=== PATIENT | male | born 1980 | race Caucasian/White ===

== ENCOUNTER 2019-08-14 23:15 | Inpatient (IN) ==
--- NOTE | 2019-08-14 23:56 | EKG Report ---
Test Performed on : 08/14/2019 11:27:24 PM Test Reason : OVERDOSE Blood Pressure : / mmHG Vent. Rate : 101 BPM Atrial Rate : 101 BPM P-R Int : 144 ms QRS Dur : 116 ms QT Int : 380 ms P-R-T Axes : 047 -27 047 degrees QTc Int : 492 ms Sinus tachycardia. Possible Left atrial enlargement Incomplete right bundle branch block Borderline ECG When compared with ECG of 26-NOV-2018 20:16, No significant change was found Unconfirmed Result
[2019-08-14 23:59] LABS: BASO# 0.02 X1000 (0.0-0.2); BASO% 0.2 % (0.0-0.8); EOS# 0.03 X1000 (0.0-0.7); EOS% 0.4 % (0.0-10.0); HEMATOCRIT 45.1 % (42.0-52.0); HEMOGLOBIN 15.1 g/dL (14.0-18.0); IMM GRAN# 0.06 X1000 (0.0-0.04); IMM GRAN% 0.7 % (0.0-0.5); LYMPH# 1.75 X1000 (1.2-3.4); LYMPH% 20.8 % (20.5-51.1); MCH 29.1 PG (27-31); MCHC 33.5 g/dL (33-37); MCV 86.9 FL (81-99); MONO# 0.73 X1000 (0.11-0.59); MONO% 8.7 % (1.7-9.3); MPV 12.7 FL (7.4-10.4); NEUT# 5.84 X1000 (1.4-6.5); NEUT% 69.2 % (42.2-75.2); PLT 167 X1000 (130-400); RBC 5.19 XMIL (4.7-6.1); WBC 8.43 X1000 (4.8-10.8)
[2019-08-15] LABS: ALLEN TEST YES; BE 3.3 mmoll (-3.0-3.0); BLOOD TYPE ARTERIAL; HCO3-(ACT) 27.3 mmoll (20.0-26.0); METHB 1.1 % (0.0-1.5); MODALITY ROOM AIR; O2(CT) 19.7 mL/dL (15.0-23.0); O2HB 91.1 % (95.0-99.0); PCO2(98.6) 41 mmHg (35-45); PO2(98.6) 67 mmHg (60-100); SAMPLE BLOOD; SAO2 96.4 % (95.0-100.0); THB 15.4 g/dL (11.5-17.4); pH(98.6) 7.44 (7.35-7.45)
[2019-08-15 01:01] LABS: ACETAMINOPHEN < 1.2 ug/mL (10-30); AGAP 12; ALB/GLOB RATIO 2.7; ALBUMIN 4.8 g/dL (3.5-5.0); ALKALINE PHOSPHATASE 66 U/L (32-122); BUN 11 mg/dL (8-22); CALCIUM 9.6 mg/dL (8.8-10.2); CHLORIDE 99 mmol/L (98-107); COSMO 272; CREATININE 1.2 mg/dL (0.7-1.2); ESTIMATED GFR > 60; GLUCOSE 113 mg/dL (70-104); GOT 21 U/L (10-34); GPT 27 U/L (10-44); LIPASE 17 U/L (13-60); POTASSIUM 3.9 mmol/L (3.5-5.1); SALICYLATES < 3.00 mg/dL (3-10); SODIUM 136 mmol/L (136-145); TCO2 25 mmol/L (25-35); TOTAL BILIRUBIN 0.31 mg/dL (0.20-1.00); TOTAL PROTEIN 6.6 g/dL (6.3-8.3)
[2019-08-15 01:16] LABS: URINE SOURCE CLEAN CATCH
[2019-08-15 01:20] LABS: BILIRUBIN URINE NEGATIVE (NEGATIVE); BLOOD URINE NEGATIVE (NEGATIVE); COLOR YELLOW; GLUCOSE URINE NEGATIVE (NEGATIVE); KETONE URINE NEGATIVE (NEGATIVE); LEUKOCYTES URINE NEGATIVE (NEGATIVE); NITRITE URINE NEGATIVE (NEGATIVE); PH URINE 6.5; PROTEIN URINE NEGATIVE (NEGATIVE); SP GRAVITY URINE 1.008; TURBIDITY URINE CLEAR (CLEAR); UR EPITHELIAL CELLS <10 /HPF (<10); URINE BACTERIA NEGATIVE /HPF; URINE RBC <10 /HPF (<10); URINE WBC <10 /HPF (<10); UROBILINOGEN URINE NORMAL (NORMAL)
--- NOTE | 2019-08-15 01:43 | PROVIDER DOCUMENTATION ---
This chart was entered by Keya Hearn Scribe, acting as scribe for Roberto Carlos Simms MD. HPI-Psychological Disorder - General Chief Complaint: Psych-High Risk Stated Complaint: OVERDOSE Time Seen by Provider: 08/14/19 23:20 Source: patient Allergies/Adverse Reactions: Patient Allergies Allergy/AdvReac Type Severity Reaction Status Date / Time haloperidol [From Haldol] AdvReac Intermediate seizure Verified 05/31/18 19:16 Home Medications: Home Medication List Medication Instructions Recorded Confirmed Last Taken Type Nicotine Patch [Nicoderm Patch] 21 mg TD DAILY patch.td24 08/12/18 Unknown Rx Duloxetine HCl 60 mg PO DAILY #30 capsule.dr 08/13/18 08/15/19 Unknown Rx Oxcarbazepine [Trileptal] 300 mg PO BID #60 tab 08/13/18 Unknown Rx Temazepam [Restoril] 15 mg PO QHS #30 cap 08/13/18 Unknown Rx Fluphenazine HCl 5 mg PO DAILY 08/15/19 08/15/19 Unknown History - History of Present Illness-Psych Nature of Presenting Problem: pt is a 39 yr old male presenting via EMS with complaint of suicidal ideation, pt admits he took 40 HBP cold tablets at approx 1700. pt admits hx of multiple suicide attempts. pt complains of nausea and shortness of breath now Onset/Duration: reports: this afternoon (1700) Timing: reports: still present Severity: reports: moderate Psychiatric Complaints: reports: depressed, suicidal ideation. denies: homicidal thoughts Substance Use: reports: denies Previous psych related hospitalizations?: Yes Patient arrived by:: EMS called by patient Similar Symptoms Previously?: No Recently seen or treated by another doctor?: No - Suicidal Ideation How did the ingestion/other suicidal act come to attention?: PT SELF REPORTED Suicide Risk Assessment: male sex, depressed, prior attempt, organized plan Suicidal Attempt Method: reports: Overdose Review of Systems - Adult - REVIEW OF SYSTEMS - ADULT Constitutional: reports: no symptoms reported Eyes: reports: no symptoms reported Ears, Nose, Mouth & Throat: reports: no symptoms reported Cardiovascular: denies: chest pain, palpitations, syncope Respiratory: reports: shortness of breath Gastrointestinal: reports: nausea. denies: vomiting Genitourinary: reports: no symptoms reported Musculoskeletal: reports: no symptoms reported Integumentary: reports: no symptoms reported Neurological: reports: no symptoms reported Psychiatric: reports: depression, emotional problems, suicidal thoughts Endocrine: reports: no symptoms reported Hematologic/Lymphatic: reports: no symptoms reported Allergic/Immunologic: reports: no symptoms reported All Other Systems: Reviewed and Negative Past History - Adult - PAST MEDICAL HISTORY-ADULT Review of Records: reports: Old Records Reviewed, Nursing Assessment Review, Medications Reviewed, Social history reviewed & non-contributory. Major Childhood Illnesses: reports: denies history Cardiovascular: reports: HTN Respiratory: reports: denies history Gastrointestinal: reports: liver disease Obstetrical/Gynecological: reports: denies history Genitourinary: reports: denies history Musculoskeletal: reports: denies history Neurological: reports: Seizures/Epilepsy Psychiatric: reports: bipolar, depression Endocrine/Immune: reports: denies history Other Conditions: reports: denies history - PRIOR SURGERIES/PROCEDURES Surgical/Procedure History: reports: none - IMMUNIZATION STATUS Childhood Immunizations: See Nurse Assessment Flu Vaccine: See Nurse Assessment - FAMILY HISTORY Family History: reviewed, not pertinent - SOCIAL HISTORY Smoking: quit less than 1 year Substance Use: denies Living Situation: family Physical Exam-Psych Focus - Physical Exam-Psych Initial Vital Signs Reviewed: Yes Appearance: appropriate appearance, appropriate insight, neat Neurological: alert, calm, hostess II-XII nml as tested, oriented x 3 Behavior/Eye Contact/Speech: cooperative, normal speech, avoids eye contact Thoughts/Hallucinations: normal thought pattern, no apparent hallucination HENMT: normocephalic/atraumatic, moist mucous membranes Neck: non-tender, full range of motion, supple, normal inspection Respiratory: lungs clear, normal breath sounds Cardiovascular: normal peripheral pulses, regular rate, rhythm Abdominal Exam: normal bowel sounds, non tender, soft Lymphatic: no adenopathy Back Exam: normal inspection, no CVA tenderness, no vertebral tenderness Extremity: normal range of motion, non-tender, normal gait, normal inspection Integumentary: normal color, normal turgor, warm/dry Progress - PLAN OF CARE/RESULTS Progress/Plan/Lab Results: Vital Signs - 8 hr 08/14/19 23:22 Pulse Rate 97 H Respiratory Rate 17 Blood Pressure 176/108 O2 Sat by Pulse Oximetry 96 Laboratory Results - last 24 hr 08/14/19 08/14/19 08/14/19 23:30 23:30 23:30 WBC 8.43 RBC 5.19 Hgb 15.1 Hct 45.1 MCV 86.9 MCH 29.1 MCHC 33.5 RDW Std Deviation 13.0 Plt Count 167 MPV 12.7 H Immature Gran % (Auto) 0.7 H Neut % (Auto) 69.2 Lymph % (Auto) 20.8 [place] % (Auto) 8.7 Eos % (Auto) 0.4 Baso % (Auto) 0.2 Immature Gran # (Auto) 0.06 H Neut # (Auto) 5.84 Lymph # (Auto) 1.75 [place] # (Auto) 0.73 H Eos # (Auto) 0.03 Baso # (Auto) 0.02 Specimen Type Sample Site pH pCO2 pO2 HCO3 Base Excess Oxyhemoglobin ABG O2 Sat (Calculated) ABG O2 Saturation ABG Carboxyhemoglobin ABG Methemoglobin Julio C Test A-a O2 Difference Total Hemoglobin Lactate Liter Flow Blood Gas Modality FiO2 % Sodium 136 Potassium 3.9 Chloride 99 Carbon Dioxide 25 Anion Gap 12 BUN 11 Creatinine 1.2 Estimated GFR/1.73 m2 > 60 BUN/Creatinine Ratio 9 Glucose 113 H Calculated Osmolality 272 Calcium 9.6 Total Bilirubin 0.31 AST 21 ALT 27 Alkaline Phosphatase 66 Troponin T Total Protein 6.6 Albumin 4.8 Globulin 1.8 Albumin/Globulin Ratio 2.7 Lipase 17 Urine Source Urine Color Urine Turbidity Urine pH Ur Specific [place] Urine Protein Ur Glucose (Stick) Ur Ketones (Stick) Urine Blood Urine Nitrite Urine Bilirubin Urobilinogen Dipstick Urine Leukocytes Urine WBC (Auto) Urine RBC (Auto) U Epithel Cells (Auto) Urine Bacteria (Auto) Salicylates < 3.00 L Acetaminophen < 1.2 L Plasma/Serum Ethyl Alc 08/14/19 08/14/19 08/15/19 23:30 23:40 00:31 WBC RBC Hgb Hct MCV MCH MCHC RDW Std Deviation Plt Count MPV Immature Gran % (Auto) Neut % (Auto) Lymph % (Auto) [place] % (Auto) Eos % (Auto) Baso % (Auto) Immature Gran # (Auto) Neut # (Auto) Lymph # (Auto) [place] # (Auto) Eos # (Auto) Baso # (Auto) Specimen Type ARTERIAL Sample Site R RADIAL pH 7.44 pCO2 41 pO2 67 HCO3 27.3 H Base Excess 3.3 H Oxyhemoglobin 91.1 L ABG O2 Sat (Calculated) 19.7 ABG O2 Saturation 96.4 ABG Carboxyhemoglobin 4.40 H ABG Methemoglobin 1.1 Julio C Test YES A-a O2 Difference 31.0 Total Hemoglobin 15.4 Lactate 1.00 Liter Flow 0.0 Blood Gas Modality ROOM AIR FiO2 % 21.0 Sodium Potassium Chloride Carbon Dioxide Anion Gap BUN Creatinine Estimated GFR/1.73 m2 BUN/Creatinine Ratio Glucose Calculated Osmolality Calcium Total Bilirubin AST ALT Alkaline Phosphatase Troponin T < 0.010 Total Protein Albumin Globulin Albumin/Globulin Ratio Lipase Urine Source CLEAN CATCH Urine Color YELLOW Urine Turbidity CLEAR Urine pH 6.5 Ur Specific [place] 1.008 Urine Protein NEGATIVE Ur Glucose (Stick) NEGATIVE Ur Ketones (Stick) NEGATIVE Urine Blood NEGATIVE Urine Nitrite NEGATIVE Urine Bilirubin NEGATIVE Urobilinogen Dipstick NORMAL Urine Leukocytes NEGATIVE Urine WBC (Auto) <10 Urine RBC (Auto) <10 U Epithel Cells (Auto) <10 Urine Bacteria (Auto) NEGATIVE Salicylates Acetaminophen Plasma/Serum Ethyl Alc Orders Category Date Time Status CHEST-PORTABLE [RAD] Stat Exams 08/14/19 23:39 Taken ABG [RESP] Routine Lab 08/14/19 23:40 Completed ALCOHOL BLOOD Stat Lab 08/14/19 23:30 Completed CBC WITH DIFF [HEME] Stat Lab 08/14/19 23:30 Completed COMPREHENSIVE METABOLIC PANEL [CHEM] Stat Lab 08/14/19 23:30 Completed LIPASE [CHEM] Stat Lab 08/14/19 23:30 Completed MAGNESIUM [CHEM] Stat Lab 08/15/19 01:32 Uncollected SALICYLATES [TDM] Stat Lab 08/14/19 23:30 Completed TROPONIN T Stat Lab 08/14/19 23:30 Completed Tylenol [ACETAMINOPHEN] [TDM] Stat Lab 08/14/19 23:30 Completed URINALYSIS W/POSS RFLX CULT [URINALYSIS] Stat Lab 08/15/19 00:31 Completed URINE DRUG SCREEN Stat Lab 08/15/19 00:31 Received EKG [EKG] Stat Ther 08/14/19 23:[address] Lobo due to chlorpheniramine and dextromethorphan overdose. Poison control consulted and recommended cardiac monitoring. Noted QRS currently 116 msec although unchanged from prior EKG months ago at 114 msec. He claims to have ingested 40 tablets in a suicidal attempt. He expresses remorse currently. He will need repeat EKGs every 6 hours. Patient aware and will require sitter. Otherwise, lab work benign. He will require an observation at this time. Result Diagrams: 08/14/19 23:30 08/14/19 23:30 - EKG 1 Time of EKG reading by physician:: 23:27 EKG Read and Signed by:: Roberto Carlos Simms EKG Interpretation (*Must complete 3 of following elements*): Abnormal (poss LAE) Rate: 101 Rhythm: sinus tach [place]: normal QRS: RBB (incomplete) FL Interval: normal ST Wave: normal - XRAY 1 XRAY Study: Chest Impression: Normal Departure - Departure Date of Disposition Decision: 08/15/19 Time of Disposition Decision: 01:39 DIAGNOSIS: Chlorpheniramine overdose, Dextromethorphan overdose Disposition: ADMITTED INPATIENT 09 Certified Medical Emergency: Emergent Condition: Good - Critical Care Note This patient required my direct & personal management of CC.: No Attestation - Physician/ TIFFANI Attestation Patient care was provided by Advanced Practice Provider:: No The physician spent face to face time with patient:: Yes Advanced Practice Provider documentation review:: Supervising physician onsite and consulted in the evaluation and care of this patient. The physician did have a face to face encounter with the patient. This chart was documented by the indicated scribe, (Keya Hearn Scribe) and accurately reflects the services I performed and decisions made by me, Roberto Carlos Simms MD, as attested by the provider's signature.
[2019-08-15 01:50] LABS: UR AMPHETAMINES QUAL NONE DETECTED (NONE DETECT); UR BARBITUATES QUAL NONE DETECTED (NONE DETECT); UR BENZODIAZEPIN QUAL NONE DETECTED (NONE DETECT); UR CANNABINOIDS QUAL NONE DETECTED (NONE DETECT); UR COCAINE QUAL NONE DETECTED (NONE DETECT); UR METHADONE QUAL NONE DETECTED (NONE DETECT); UR OPIATES QUAL NONE DETECTED (NONE DETECT); UR OXYCODONE QUAL NONE DETECTED (NONE DETECT); UR PCP QUAL NONE DETECTED (NONE DETECT)
[2019-08-15] MEDS ORDERED: TYLENOL PO PRN (02:20)
[2019-08-15] MEDS: NS 1,000 ML IV SCH ×3 (02:52→19:20)
--- NOTE | 2019-08-15 06:41 | EKG Report ---
Test Performed on : 08/15/2019 05:40:24 AM Test Reason : OVERDOSE Blood Pressure : / mmHG Vent. Rate : 072 BPM Atrial Rate : 072 BPM P-R Int : 142 ms QRS Dur : 116 ms QT Int : 414 ms P-R-T Axes : 053 -17 039 degrees QTc Int : 453 ms Normal sinus rhythm. Possible Left atrial enlargement Right bundle branch block Abnormal ECG When compared with ECG of 14-AUG-2019 23:27, (Unconfirmed) No significant change was found Confirmed by Ty SCHUMACHER, P.J.M ([id number]) on 08/16/2019 7:55:29 PM
--- NOTE | 2019-08-15 07:01 | Diag Imaging Result Doc PS360 ---
EXAM: CHEST-PORTABLE 08/14/2019 HISTORY: ingestion TECHNIQUE: AP portable at 2344 COMMENT: There is slightly increased interstitial opacity and pulmonary vascularity. This appearance has not changed significantly since 11/26/2018. IMPRESSION: Stable chest. Electronically signed by Chandler Corbin 08/15/2019 6:59 AM
--- NOTE | 2019-08-15 08:33 | HISTORY AND PHYSICAL ---
PRIMARY CARE PHYSICIAN: Unknown. CHIEF COMPLAINT: Took 30 pills of cough suppressant. HISTORY OF PRESENTING ILLNESS: A 39-year-old male with history of bipolar disorder who had presented to the emergency department after taking about 40 tablets of cough and antihistamine tablets. He states he was trying to hurt himself. He states he has been stressed out while taking care of his baby. He was evaluated in the emergency department. His case was discussed with poison control who recommended admission, and to monitor him on telemetry. Continue with supportive care. At the time of my examination, he still states that he still wants to hurt himself. He denied any headache, fever, chills, chest pain, shortness of breath or any weight changes however. PAST MEDICAL HISTORY: Bipolar disorder. PAST SURGICAL HISTORY: None. ALLERGIES: No known drug allergies. CURRENT MEDICATIONS: He does not recall. Nursing staff will reconcile. SOCIAL HISTORY: No history of smoking alcohol or illicit drug use. FAMILY HISTORY: No history of coronary artery disease. REVIEW OF SYSTEMS: Fourteen point review of system as listed in HPI. Other systems negative. PHYSICAL EXAMINATION: GENERAL: Cooperative friendly male. He is resting comfortably now. VITAL SIGNS: Pulse 97, respirations 17 and blood pressure 176/108. HEENT: Atraumatic, normocephalic. Extraocular movements intact. PERRLA. NECK: Supple. CHEST: Clear to auscultation. CARDIOVASCULAR: Regular rate and rhythm. S1, S2. ABDOMEN: Soft. Positive bowel sounds. EXTREMITIES: No edema. NEUROLOGIC: He is awake, alert, and oriented x3. PSYCHIATRIC: He seems anxious. : No bladder distention. SKIN: Warm. LABORATORIES AND STUDIES: WBCs 8.43 hemoglobin 15.1, hematocrit 45.1, and platelets 167,000. Toxicology and salicylate less than 3.0, acetaminophen less than 1.2. UA is negative. Sodium 136, potassium 3.9, chloride 99, CO2 25, BUN is 11, creatinine 1.2, and glucose 113. WBCs 8.43 hemoglobin 15.1, hematocrit 45.1, and platelets 167,000. Blood gas pH 7.44. ASSESSMENT: This is a 39-year-old male with a history of bipolar disorder who intentionally took about 40 pills of cough and antihistamine tablets. He was intentionally trying to hurt himself. He was evaluated in the emergency department. His case was discussed with poison control who recommended the patient be admitted for further management. 1. Intentional drug overdose. 2. Suicide attempt. 3. Bipolar disorder. PLAN: 1. We will admit patient to [facility]. 2. Continue with supportive care. 3. Continue with gentle hydration. 4. Monitor patient on telemetry. 5. Consult Psychiatry. 6. Put the patient on DVT prophylaxis and SCD's. 7. Continue to follow and reassess. Make further recommendations based on patient's clinical course. cc: Hong Lobo MD
[2019-08-15] MEDS ORDERED: PRILOSEC PO ONE (09:37)
[2019-08-15] MEDS ORDERED: ZOFRAN IV PRN (09:39)
--- NOTE | 2019-08-15 09:51 | EKG Report ---
Test Performed on : 08/15/2019 09:47:14 AM Test Reason : Follow up QTc / QRS changes Blood Pressure : / mmHG Vent. Rate : 058 BPM Atrial Rate : 058 BPM P-R Int : 138 ms QRS Dur : 112 ms QT Int : 428 ms P-R-T Axes : 055 -12 040 degrees QTc Int : 420 ms Sinus bradycardia. Possible Left atrial enlargement Incomplete right bundle branch block Nonspecific T wave abnormality Abnormal ECG When compared with ECG of 15-AUG-2019 05:40, (Unconfirmed) No significant change was found Confirmed by Ty SCHUMACHER, P.J.M ([id number]) on 08/16/2019 7:56:14 PM
--- NOTE | 2019-08-15 11:50 | PROGRESS NOTE ---
DATE: 08/15/2019 INTERVAL HISTORY: Mr. Archer was admitted for suicidal ideation where he took about 40 tablets of chlorpheniramine and dextromethorphan. SUBJECTIVE: He states that he does not have active suicidal ideation at the moment but he is really feeling stressed out and anxious. He says he wants to go home and be with his and children. I discussed with him about the importance of observing him for his potential adverse health outcome related to drug overdose. He states that recently, his anxiety medications were changed because of fatty liver and he is currently taking duloxetine and fluphenazine. Currently, he is also complaining of left-sided chest pain without any cough. He did have a little bit of nausea. He denies any positional change in the chest pain. The character of the pain is sharp and occasionally burning. He states sometimes it gets worse on deep breath. He denies any abdominal cramps. I discussed with him about potential adverse effects of chlorpheniramine as well as dextromethorphan including drowsiness, sedation, respiratory depression, dry mouth, cardiac tachyarrhythmia, epigastric tenderness, abdominal cramps, urinary retention, constipation. Answered all of his questions. VITALS: Temperature 98 degrees, pulse 68, respiratory rate 28, blood pressure 140/99, saturating 93% on room air. PHYSICAL EXAMINATION: Not in any acute distress. Oral cavity is dry. He wants to eat. Pupils are bilaterally equal, reacting to light. Air entry bilaterally equal. No wheeze, rhonchi, crackles. Cardiovascular: S1, S2 normal. No murmur, rub, or gallop. No chest wall tenderness. Abdomen: Soft, nontender except nonspecific tenderness in the left lower quadrant. Active bowel sounds. No lower extremity edema. He is alert and oriented x3, though appears a little drowsy. LABS: CBC, ABG, and BMP were largely unremarkable. Microbiology, no positive data. Chest x-ray did not have any acute abnormalities. ASSESSMENT AND PLAN: 1. Intentional drug overdose with chlorpheniramine and dextromethorphan with suicidal attempt. Continue one-to-one suicide precautions. I will get an electrocardiogram every 6 hours. Poison Control was consulted by emergency room. I will continue to monitor him in cardiac telemetry unit. He was counseled about seeking help whenever he has any suicidal or homicidal ideation. He understood it. [place] [facility] [place] consult is pending. 2. Left-sided chest pain. This could be related to multiple medication use and probably acute gastritis. I will get troponins. His initial electrocardiogram did not have any acute coronary syndrome like events. I will also start him on proton pump inhibitors. I will also start him on oral diet. 3. History of anxiety, previous suicide attempt 2 years ago with clonazepam. A week ago, he was taken off his Abilify trazodone, and some of the other medications. He states just a week ago, he was started on fluphenazine and though initially he felt well, about 5 days after starting the medication, he did start feeling suicidal. I will appreciate psychiatry recommendations for future management. I will continue to hold fluphenazine as it may have possibly contributed to his suicidal ideation, though unlikely. cc: Isidoro Benton MD
--- NOTE | 2019-08-15 16:08 | EKG Report ---
Test Performed on : 08/15/2019 3:47:00 PM Test Reason : Follow up QTc / QRS changes Blood Pressure : / mmHG Vent. Rate : 066 BPM Atrial Rate : 066 BPM P-R Int : 116 ms QRS Dur : 114 ms QT Int : 432 ms P-R-T Axes : 021 -32 033 degrees QTc Int : 452 ms Normal sinus rhythm. Left axis deviation Incomplete right bundle branch block Nonspecific T wave abnormality Abnormal ECG When compared with ECG of 15-AUG-2019 09:47, (Unconfirmed) No significant change was found Confirmed by Ty SCHUMACHER, P.J.M ([id number]) on 08/16/2019 7:57:10 PM
--- NOTE | 2019-08-15 22:00 | EKG Report ---
Test Performed on : 08/15/2019 9:53:43 PM Test Reason : Follow up QTc / QRS changes Blood Pressure : / mmHG Vent. Rate : 054 BPM Atrial Rate : 054 BPM P-R Int : 120 ms QRS Dur : 112 ms QT Int : 444 ms P-R-T Axes : 031 -19 024 degrees QTc Int : 421 ms Sinus bradycardia. Incomplete right bundle branch block Nonspecific T wave abnormality Abnormal ECG When compared with ECG of 15-AUG-2019 15:47, (Unconfirmed) No significant change was found Confirmed by Ty SCHUMACHER, P.J.M ([id number]) on 08/18/2019 5:35:55 PM
--- NOTE | 2019-08-16 04:25 | EKG Report ---
Test Performed on : 08/16/2019 03:59:04 AM Test Reason : Follow up QTc / QRS changes Blood Pressure : / mmHG Vent. Rate : 051 BPM Atrial Rate : 051 BPM P-R Int : 114 ms QRS Dur : 114 ms QT Int : 454 ms P-R-T Axes : 040 011 052 degrees QTc Int : 418 ms Sinus bradycardia. Incomplete right bundle branch block Borderline ECG When compared with ECG of 15-AUG-2019 21:53, (Unconfirmed) No significant change was found Confirmed by Ty SCHUMACHER, P.J.M ([id number]) on 08/16/2019 7:57:57 PM
[2019-08-16 07:18] LABS: BASO# 0.02 X1000 (0.0-0.2); BASO% 0.3 % (0.0-0.8); EOS# 0.05 X1000 (0.0-0.7); EOS% 0.8 % (0.0-10.0); HEMATOCRIT 44.8 % (42.0-52.0); HEMOGLOBIN 14.9 g/dL (14.0-18.0); LYMPH# 2.16 X1000 (1.2-3.4); LYMPH% 34.6 % (20.5-51.1); MCH 29.2 PG (27-31); MCHC 33.3 g/dL (33-37); MCV 87.8 FL (81-99); MONO# 0.65 X1000 (0.11-0.59); MONO% 10.4 % (1.7-9.3); MPV 12.3 FL (7.4-10.4); NEUT# 3.37 X1000 (1.4-6.5); NEUT% 53.9 % (42.2-75.2); PLT 135 X1000 (130-400); RDW 13.2 % (11.5-14.5); WBC 6.25 X1000 (4.8-10.8)
[2019-08-16 07:43] LABS: AGAP 12; BUN 7 mg/dL (8-22); CALCIUM 8.9 mg/dL (8.8-10.2); CHLORIDE 105 mmol/L (98-107); COSMO 279; CREATININE 0.9 mg/dL (0.7-1.2); ESTIMATED GFR > 60; GLUCOSE 99 mg/dL (70-104); POTASSIUM 4.1 mmol/L (3.5-5.1); SODIUM 141 mmol/L (136-145); TCO2 24 mmol/L (25-35)
[2019-08-16] MEDS: PRILOSEC PO SCH (09:25)
--- NOTE | 2019-08-16 10:32 | PROGRESS NOTE ---
DATE: 08/16/2019 INTERVAL HISTORY: No acute events overnight. SUBJECTIVE: He is denying any new complaints. He is feeling much better today. Denies any suicidal or homicidal ideation. His mood and thoughts are appropriate. We discussed about advancing his diet. His EKGs and troponins were unremarkable. VITALS: Temperature 97.9, pulse rate 55, respiratory rate 20, blood pressure 116/89, saturating 96% room air. PHYSICAL EXAMINATION: General: Does not appear in acute distress. HEENT: Oral cavity is moist. Lungs: Air entry bilateral equal. No wheeze, rhonchi, or crackles. Cardiovascular: S1, S2 normal. No murmur, rub, or gallop. Abdomen: Soft, nontender, active bowel sounds. Extremities: No lower extremity edema. Neurologic: He is alert and oriented x3. LABORATORY: Suggestive of unremarkable CBC and pretty much unremarkable BMP. No microbiological data. No new imaging. ASSESSMENT AND PLAN: 1. Intentional drug overdose with chlorpheniramine and dextromethorphan with suicide attempt. I will continue one-to-one suicide precautions observation for at least until 6 p.m. He is currently denying any active suicide ideation. I am awaiting [facility] recommendations to see if he will need inpatient psychiatric treatment. 2. History of anxiety, previous suicide attempt with clonazepam 2 years ago. He was taking Cymbalta and fluphenazine, which I am holding until [facility] gives further consultations. 3. Left-sided chest pain likely because of acute gastritis, now resolved. Continue proton pump inhibitor. His troponins are negative. 4. Disposition. I will monitor the patient inside the hospital for at least 24 hours. Plan of care discussed with him. His questions have been answered. cc: Isidoro Benton MD
[2019-08-16] MEDS: PROLIXIN PO SCH (16:53)
[2019-08-16] MEDS: CYMBALTA PO SCH (16:53)
--- NOTE | 2019-08-16 21:46 | PROGRESS NOTE ---
DATE: 08/16/2019 [facility] was consulted and stated the patient could be an appropriate candidate for inpatient psych management; however, they did not have bed at that time; however, patient states that he is feeling well. He does not have any active suicidal ideation. He stated he really would want to go home and he would manage these conditions with his outpatient provider. He states that it was just a stupid mistake that he committed, and he no longer has any inclination of committing this again. He really does not want to go to inpatient psychiatric facility despite my recommendations, so the plan would be to observe him for another 24 hours and possibly discharge him home tomorrow with outpatient psych provider. I also encouraged him to schedule an earlier appointment with his psychiatrist within 7 to 10 days after discharge or as soon as possible. He agreed. cc: Isidoro Benton MD
[2019-08-17] MEDS: PROLIXIN PO SCH (09:37)
[2019-08-17] MEDS: PRILOSEC PO SCH (09:37)
[2019-08-17] MEDS: CYMBALTA PO SCH (09:37)
[2019-08-17 14:22] VITALS: BP 110/59
--- NOTE | 2019-08-18 14:33 | EKG Report ---
Test Performed on : 08/15/2019 00:22:37 AM Test Reason : ED. No order in [place] Blood Pressure : / mmHG Vent. Rate : 101 BPM Atrial Rate : 101 BPM P-R Int : 336 ms QRS Dur : 094 ms QT Int : 320 ms P-R-T Axes : 069 066 142 degrees QTc Int : 414 ms Sinus tachycardia. with 1st degree AV block. Septal infarct , age undetermined ST & T wave abnormality, consider inferior ischemia Abnormal ECG When compared with ECG of 14-AUG-2019 23:27, (Unconfirmed) [place] interval has increased Incomplete right bundle branch block is no longer present Septal infarct is now present Unconfirmed Result
--- NOTE | 2019-08-18 17:09 | DISCHARGE SUMMARY ---
ADMISSION DATE: 08/15/2019 DISCHARGE DATE: 08/17/2019 DISCHARGE DISPOSITION: Home. The patient was initially recommended to go to a psychiatric facility inpatient for his suicidal ideations, which had already subsided; however, despite understanding the benefits, the patient decided to go to home and stated he did not have any persistent suicidal or homicidal ideation. DISCHARGE DIAGNOSES: 1. Intentional drug overdose with chlorpheniramine and dextromethorphan with suicidal attempt. 2. Left-sided chest discomfort thought to be related to medication overdose and mild gastritis. OTHER DIAGNOSES: 1. History of anxiety. 2. History of suicide attempt in 2017 with clonazepam. 3. History of bipolar mood disorder. DISCHARGE MEDICATIONS: Fluphenazine 5 mg daily, duloxetine 60 mg daily. VITALS AT THE TIME OF DISCHARGE: Temperature 98, pulse 61, respiratory rate 16, blood pressure 110/59, saturating 97% on room air. PHYSICAL EXAMINATION: General: He is not in acute distress. HEENT: Oral cavity is moist. Lungs: Air entry equal. No wheeze, rhonchi, crackles. Cardiovascular: S1, S2 normal. No rubs or gallops. Abdomen: Soft, nontender. Extremity: No lower extremity edema. Neurologic: He is alert oriented x3. Psychiatric: He denies any suicidal or homicidal ideation. His thought process is normal. No tangentiality. He is not anxious or depressed. His mood is appropriate. LABS AT THE TIME OF ADMISSION AND DISCHARGE: WBCs 6.2, hemoglobin 14.9, platelets 135. Potassium 4.1, BUN 7, creatinine 0.9. Urinalysis was unremarkable. Urine toxicology was negative for any recreational substances. Microbiology: No data. Chest x-ray on admission had a stable chest. EKGs performed serially had sinus tachycardia with incomplete right bundle branch block which had resolved into normal sinus rhythm with incomplete right bundle branch block over the course of hospital admission. HOSPITAL COURSE SUMMARY: Mr. Archer is a 39-year-old man with a past medical history of bipolar mood disorder who has had a suicide attempt 2 years ago and was being followed up with a psychiatrist outpatient. Came in after he ingested almost 30 tablets of cough suppressant. In the emergency room he was hemodynamically stable, just that he was a little drowsy. The patient mentioned that he was stressed out taking care of his child, and on an impulse he took many pills of cough suppressant that he had, after which he was feeling drowsy and nauseated, and he came to the emergency room. Poison Control was consulted, and he was recommended to have serial EKG monitoring, which did not have any acute pathology. The patient was initially kept on one-to-one observation for suicide precautions; however, after hospital admission, he denied any active suicidal ideation, and his EKG remained unremarkable. David Kyle was consulted and had recommended inpatient psychiatric admission; however, patient had refused to go to any of the psychiatric hospitals and wanted to go home despite understanding the benefits of going to a psychiatric hospital. He said he did not have any more suicidal ideation and he would not perform any attempt of the same in future. He also agreed to schedule an appointment with his outpatient psychiatrist as soon as possible. His anxiety and depression medications were restarted 24 hours prior to hospital discharge, which he was tolerating well. TIME SPENT: Less than 30 minutes was spent in discharging the patient. Plan of care was extensively discussed with him. He was asked to come to the emergency room at the earliest whenever he would have suicide ideations, and he agreed. cc: Isidoro Benton MD
== END 2019-08-17 17:34 | disposition home or self-care (01) | DRG 918 ==
LOC: ED 23:15 → EDIPHOLD 08-15 03:06 → SUATTDRO 08-15 03:06 → 3N 08-15 20:23
PROVIDERS: ATTEND Internal Medicine